=== PATIENT | male | born 1995 | race Two or more races ===

== ENCOUNTER 2021-01-23 21:23 | Emergency (ER) | payer BC, OTHER ==
[~2021-01-23] VITALS: Ht 167.6 cm; Wt 63.5 kg
[2021-01-23 23:47] LABS: Urine Bacteria FEW /hpf (None Seen); Urine Blood Negative /uL (Negative); Urine Mucus FEW (None Seen); Urine WBC 8 /hpf (0 - 3)
[2021-01-24 00:58] LABS: Basophils # (auto) 0.1 10 ^3/uL (0-0.2); Basophils % (auto) 0.8 % (0.0-2.0); Eosinophils # (auto) 0.1 10 ^3/uL (0-0.8); Eosinophils % (auto) 1.5 % (0.0-7.0); Hematocrit 48.5 % (41.0-53.0); Hemoglobin 16.6 g/dL (13.5-17.5); Lymphocytes # (auto) 3.5 10 ^3/uL (0.4-5.4); Lymphocytes % (auto) 36.6 % (10.0-50.0); Mean Corpuscular Hemoglobin 30.6 pg (28.0-32.0); Mean Corpuscular Hgb Conc. 34.3 g/dL (32.0-36.0); Mean Corpuscular Volume 89.2 fL (80.0-100.0); Monocytes # (auto) 0.6 10 ^3/uL (0-1.3); Monocytes % (auto) 6.1 % (0.0-12.0); Neutrophils # (auto) 5.3 10 ^3/uL (1.6-8.6); Nucleated Red Blood Cells % 0.2 %; Platelet Count (auto) 231 10^3/uL (140-450); Red Blood Cells 5.44 10^6/uL (4.5-5.90); Red Cell Distribution Width 13.3 % (11.8-14.3); White Blood Cell 9.6 10^3/uL (4.4-10.8)
[2021-01-24 01:20] LABS: Albumin 4.1 g/dL (3.4-5.0); Calcium 9.1 mg/dL (8.5-10.1); Magnesium 2.1 mg/dL (1.6-2.6); Potassium 3.6 mmol/L (3.5-5.1)
[2021-01-24 01:23] LABS: Bilirubin, Total 1.8 mg/dL (0.2-1.0)
[2021-01-24 04:30] VITALS: BP 124/74
== END 2021-01-24 04:40 | disposition home or self-care (01) ==
LOC: ER 21:26
DX: N39.0 Urinary tract infection, site not specified (principal); K92.0 Hematemesis
CPT/HCPCS: 36415; 80053; 81001; 83735; 85025